=== PATIENT | male | born 1970 | race Caucasian/White ===

== ENCOUNTER 2024-03-23 09:01 | Emergency (ER) | payer SELFPAY ==
[~2024-03-23] VITALS: Ht 167.6 cm; Wt 110.0 kg
[2024-03-23 09:14] VITALS: BP 147/81; PULSE 78; RESP 18; TEMP 98; O2SAT 99
== END 2024-03-23 11:45 | disposition home or self-care (01) ==
LOC: ER 09:01
DX: M25.561 Pain in right knee (principal); M25.532 Pain in left wrist
CPT/HCPCS: 73110; 73562; 99284